=== PATIENT | female | born 1940 | race Caucasian/White ===

== ENCOUNTER 2019-02-13 16:08 | Emergency (ER) | payer OTHER ==
[~2019-02-13] VITALS: Ht 152.4 cm; Wt 65.8 kg
[~2019-02-13 16:08] MED LIST: DESPEC-DM TABL1 EACH PO; ZITHROMAX500 MG PO
[2019-02-13] MEDS ORDERED: ATORVASTATIN CA20 MG PO (16:18)
[2019-02-13] MEDS ORDERED: NORVASC10 MG PO (16:19)
== END 2019-02-13 20:00 | disposition home or self-care (01) ==
LOC: ER 16:08
DX: N20.1 Calculus of ureter (principal); R10.12 Left upper quadrant pain; R11.11 Vomiting without nausea